=== PATIENT | male | born 1975 | race Caucasian/White ===

== ENCOUNTER 2017-10-05 11:35 | Inpatient (IN) | payer OTHER ==
[~2017-10-05] VITALS: Ht 180.3 cm; Wt 74.8 kg
[2017-10-05] VITALS (11 sets, daily range): BP systolic 110–134; BP diastolic 60–91; Ht 180.3 cm; Wt 74.8 kg
--- NOTE | ~2017-10-05 | DS ---
PATIENT:ZEENAT GONZALEZ :75 MEDICAL RECORD: [id number] DISCHARGE SUMMARY ADMISSION DATE: 10/05/17 DISCHARGE DATE: 10/07/17 ADMISSION DIAGNOSES: Severe degenerative disc disease with lumbar radiculopathy and foraminal stenosis, L5-S1 bilaterally. DISCHARGE DIAGNOSES: Status post anterior lumbar interbody fusion. ADMITTING SURGEON: Chris Siddiqui MD. HOSPITAL COURSE: Mr. Gonzalez was admitted on the day of surgery, underwent an anterior lumbar interbody fusion and ALIF and tolerated the procedure well. By postop day #2, was ambulating and tolerating a regular diet. He was discharged home with [facility] 10/325 every q.2-3 hours p.r.n. for pain. FOLLOWUP: He is to follow up with Dr. Siddiqui in 2 weeks, Dr. Pelayo in 1 week. DIET: Regular. ACTIVITY: Ad nancy. TRANSINT:[id number] Voice Confirmation ID: [id number] DOCUMENT ID: [id number] CHRIS SIDDIQUI MD at 1832 CC: [id number] DICTATION DATE: 11/02/17 1625 MANAGER INTERN: 11/03/17 1123 DIS IN 10/07/17 [facility] [address] [place] [address]
--- NOTE | ~2017-10-05 | OP ---
PATIENT NAME: ZEENAT GONZALEZ MEDICAL RECORD: [id number] :75 LOCATION:[facility] ADMISSION DATE:10/05/17 SURGEON: ELIZABTEH RUIZ MD DATE OF OPERATION: 10/05/2017 This is a cosurgeon note. PREOPERATIVE DIAGNOSIS: Degenerative disc disease, L5-S1. POSTOPERATIVE DIAGNOSIS: Degenerative disc disease, L5-S1. PROCEDURE: Anterior lumbar interbody fusion exposure as a cosurgeon case. NEUROSURGEON: Lizeth Siddiqui MD SURGEON: Elizabeth Ruiz MD THERMODYNAMICS PROFESSOR: Bassam Salazar MD ANESTHESIA: General. COMPLICATIONS: None. BLOOD LOSS: Minimal. This was a cosurgeon procedure. Due to complexity of the procedure, 2 attending surgeons were necessary during the operative procedure. Dr. Lizeth Siddiqui was the neurosurgeon. The access surgeon, who is a general surgeon, is Dr. Elizabeth Ruiz. For the description of the construct please see Dr. Siddiqui's note. I was present through the entire operation from the initial skin incision to the final closure. I never left the operating room and was present and assisted Dr. Siddiqui during insertion of the construct. DESCRIPTION OF THE PROCEDURE: The patient was conveyed to the operating room electively on 10/05/2017. General anesthesia was induced by the anesthesia staff. The abdomen was sterilely prepped and draped. An incision was accomplished in the midline. Sharp dissection was carried down through skin and subcutaneous tissue as well as Nikunj's fascia. The linea alba was incised in the midline. I then elevated the left rectus abdominis muscle. Creating an extraperitoneal plane, I continued around on the left side. The transversalis fascia was identified and divided. I elevated the epigastric vein. The visceral sac was then pulled to the left. I identified the ureter. The iliac artery and vein were identified. The ureter was protected and undamaged through the entire operation. I identified the L5-S1 disc space. The Bookwalter retractor was then fixated above the incision and the retractor blades were placed. We elevated the bifurcation of the inferior vena cava as well as both common iliac veins. This exposed the L5-S1 disc space. The median sacral vein was cauterized with the bipolar cautery. Dr. Siddiqui then inserted a needle into the L5-S1 disc space and this disc space was confirmed radiographically. I was present and retracted venous structures away from Dr. Siddiqui's operative field while he performed the OPERATIVE REPORT [id number] ZEENAT GONZALEZ discectomy and placement of the spinal construct. I was with him during this entire procedure and assisted him with retraction of tissue away from his operative site. Once he was finished with insertion of the construct and was satisfied with how it appeared radiographically, I went about closing the abdomen. I released the retractors. There was no bleeding. I identified the left ureter and it was undamaged during the procedure. I noted no evidence of a DVT in the left iliac venous system. There appeared to have been no intestinal injury. No injury to the bladder. The linea alba was closed in the midline with a running looped 0 PDS from the cephalad and caudad directions. Nikunj's fascia was approximated with interrupted 3-0 Vicryls. The subdermis was approximated with interrupted 3-0 Vicryls. The skin was approximated with a running intracuticular 3-0 Vicryl. Benzoin and Steri-Strips were applied. The patient was then extubated and conveyed to post-anesthesia care unit where she was in stable condition. TRANSINT:[id number] Voice Confirmation ID: [id number] DOCUMENT ID: [id number] 10/07/2017 Edited per nelson Goodwin. ELIZABETH RUIZ MD at 1742 CC: JESSICA LONG and LIZETH SIDDIQUI [id number] DICTATION DATE: 10/05/17 1543 TRANSPORTATION OFFICER: 10/05/17 1621 DIS IN 10/07/17 [facility] [address] [place] [address]
--- NOTE | ~2017-10-05 | OP ---
PATIENT NAME: ZEENAT GONZALEZ MEDICAL RECORD: [id number] :75 LOCATION:[facility] ADMISSION DATE:10/05/17 SURGEON: LIZETH SIDDIQUI MD DATE OF OPERATION: 10/05/2017 PREOPERATIVE DIAGNOSES: Severe degenerative disc disease, L5-S1 bilateral and L5 radiculopathy secondary to foraminal stenosis, L5-S1 bilaterally. Segmental instability L5-S1, discogenic back pain secondary to degenerative disc disease, L5-S1. PROCEDURE: Anterior lumbar interbody fusion with LDR PEEK interbody cage, LDR anterior lumbar plates, ViaCell bone stem cell allograft. SURGEON: Lizeth Siddiqui MD CO-SURGEON: Dr. Shawn ePlayo. DESCRIPTION OF TECHNIQUE: After induction of general anesthesia and exposure to the anterior lumbar spine at L5-S1 by Dr. Pelayo, I placed a spinal needle in the L5-S1 disc space. The annulus was incised with #11 blade. A series of curettes and Cassidy retractors used to prepare the disc space and cartilaginous endplates and the bony endplates at L5 and S1. Following this, the bony edges were bleeding after preparation with curettes. A PEEK interbody cage was placed in the disc space under fluoroscopic control. Prior to this, it was filled with ViaCell bone stem cell allograft. After good positioning of the cage was confirmed with fluoroscopic x-ray separate lumbar plates were placed under fluoroscopic control. The locking mechanism was secured over each plate. Good position of the plates was confirmed with fluoroscopic x-ray. Meticulous hemostasis was maintained throughout the wound. The closure was turned over to Dr. Pelayo. TRANSINT:[id number] Voice Confirmation ID: [id number] DOCUMENT ID: [id number] LIZETH SIDDIQUI MD at 1832 CC: [id number] DICTATION DATE: 11/02/17 1608 OBSTETRICIAN: 11/02/17 1621 DIS IN 10/07/17 [facility] [id number] [place] [address]
[~2017-10-05 11:35] MED LIST: IBUPROFEN200 MG PO
[2017-10-06] VITALS (16 sets, daily range): BP systolic 102–131; BP diastolic 53–77
[2017-10-07 01:01] VITALS: BP 112/54
[2017-10-07 04:47] VITALS: BP 114/68
[2017-10-07 07:57] VITALS: BP 139/64
[2017-10-07] MEDS ORDERED: PERCOCET 10/3251 TA1 PO (08:03)
[2017-10-07] MEDS ORDERED: COLACE100 MG PO (08:08)
== END 2017-10-07 11:36 | disposition home or self-care (01) | DRG 460 ==
LOC: D.ICU 11:35 → D.OPS 11:35 → D.PAN 14:00 → D.OPS 14:00 → D.ICU 14:58 → D.OPS 15:07 → D.MS 10-06 18:12
PROVIDERS: Neurological Surgery
PROC: 0SB40ZZ Excision of Lumbosacral Disc, Open Approach (ICD-10-PCS; 2017-10-05)
PROC: 0SG30A0 Fusion of Lumbosacral Joint with Interbody Fusion Device, Anterior Approach, Anterior Column, Open Approach (ICD-10-PCS; principal; 2017-10-05 14:00)
DX: M51.37 Other intervertebral disc degeneration, lumbosacral region (principal)